=== PATIENT | male | born 1995 | race Caucasian/White ===

== ENCOUNTER 2024-06-02 13:51 | Outpatient (CLI) | payer OTHER, SELFPAY ==
--- NOTE | ~2024-06-02 | MR_ITS ---
EXAMINATION: MR brain/brain stem wo/w con DATE: 06/02/2024 14:56 INDICATION: Trigeminal autonomic cephalalgia. TECHNIQUE: Magnetic resonance imaging (MRI) of the brain, brainstem, and internal auditory canals was performed without and with 20 mL MultiHance intravenous contrast. COMPARISON: None. FINDINGS: There is no intracranial hemorrhage, acute infarction, or abnormal intracranial mass lesion . The cisternal segments of the trigeminal nerves are normal. The ventricles are normal in size. The paranasal sinuses are normal. The orbits are normal. The mastoid air cells are normal. IMPRESSION: 1. Normal trigeminal nerves. No vascular loop compression. Reviewed, dictated and finalized at location A. [facility]
== END 2024-06-02 13:52 | disposition home or self-care (01) ==
LOC: MICIMG 13:52
DX: G44.099 Other trigeminal autonomic cephalgias (TAC), not intractable (principal)
CPT/HCPCS: 70553; A9577